=== PATIENT | male | born 1940 | race Caucasian/White ===

== ENCOUNTER 2017-10-26 11:45 | Outpatient (RCR) | payer MEDICARE, SELFPAY ==
--- NOTE | 2017-10-26 14:30 | HP.OTEVAL_ITS ---
Patient's Visit Information ANGEL MOSLEY is a 77 year old M, referred to Occupational Therapy by Harinder Worley [email or web address], with a diagnosis of CTS Release. Date of Evaluation: 10/26/17 Occupational Therapist: Haily Dawson - Subjective Subjective: Angel arrived and noted surgery for CTS 3 weeks ago, around 2017. He noted he fell off ladder about couple feet and fell off. He tried to catch himself with B hands and noted he was worried about CTS. - Pain Right Wrist 0 Pain Intensity Range: 2, 3 - ROM Wrist: flexion R 0-36, L 0-70; ext R 0-45, L 0-45 CMC: WFL MP: R 2nd 12-62, 3 19-68, 4 17-72, 5 10-90; L 2nd -10-80 WFL PIP: R 2nd 0-82, 3 0-87, 4 0-92, 5 6-72; L 2nd 0-95 ROM Comments: Angel has decreased ability to form composite fist with R hand at this time. - Strength [place] Carver: R 20, L 70 Lateral Pinch: R 11, L 15 Tripod Pinch: R 9, L 12 Tip-to-Tip Pinch: R 4, L 12 - Sensation Thumb: R 3.22, L 3.61 Index: R 3.61, L 3.22 Middle: R 3.22, L 3.84 Ring: R 2.83, L 3.61 Little: R 2.83, L 2.83 - Nine Hole Peg Comments: will complete in upcoming sessions. 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 Goal:: Angel to increase R hand ROM to that of L hand for increased Waldemar nd ability to complete manipulation tasks needfor IADls 2/3 trials 75% of the time by d/c. Goal:: Angel to consisently have 0-1/10 pain when completing all ADL/IADls including work 4/5 trials 80% of the time by d/c. Goal:: Angel to increase touch sesnation to normal as indicated on monofilament test to promote increased touch sesnation by time of d/c. Goal:: Angel to be (I) to return to all ADL/IADls including work tasks 4/5 trials 80% of the time by d/c. Goal:: Angel to be mod I to complete HEP with R UE to promote increased fx 4/5 trials 80% of the time by d/c. - Rehabilitation General Assessment: Angel arrived for OT eval on this date. He had R CTS release and trigger finger release on R 5th digit approximately 3 weeks ago. He noted he recently had a little fall and bumped R hand. He exhibited decreased ROM including ability to form full composite fist, strength, and fx activity paticpation. OT to work on increasing particpation in ADl/IADls to promote return to PLOF. Rehabilitation Potential: Excellent - Anticipated Interventions Anticipated Interventions: A/AAROM/PROM, Strengthening, Edema Control, Scar Care , Massage, Desensitization, Wound Care, Modalities, Orthoses, Joint Protection/ Energy Conservation, Dynamic Sitting Balance, Fine Motor Coord/Jose, Visual/ Perceptual Skills, ADL Training, Caregiver Training, Home Program - Visit Plan Frequency: 2-3x /Week Duration: 4-6 Weeks General Plan: Angel to recieve OT for 2-3x, 4-6 weeks to address ROM, strength , FMC, B hand dexterity, and return to all ADl/AIdls including work related tasks. Due to high copay Pt. will be treated 2-3x for first 2 weeks and then as long as progressing nicely he will be moved to 1x week to save on copays per visit. TEXT: Thank you for the opportunity to evaluate your patient. For Medicare and Medicare HMO plans, please review the plan of care and approve it. It will need to be FAXED BACK to us at [phone] for Medicare purposes. Please let me know if there are questions or concerns regarding this plan of care. Physician Signature: Date:
--- NOTE | 2018-01-14 09:47 | HP.OTDCNRP_ITS ---
HP - Discharge Summary - Patient Information VLAD MOSLEY was seen in my office for initial evaluation on 10/26/17. The following Plan of Care was established for this patient: Initial Frequency: 2-3x /Week Initial Duration: 4-6 Weeks - Anticipated Interventions Anticipated Interventions: A/AAROM/PROM, Strengthening, Edema Control, Scar Care , Massage, Desensitization, Wound Care, Modalities, Orthoses, Joint Protection/ Energy Conservation, Dynamic Sitting Balance, Fine Motor Coord/Jose, Visual/ Perceptual Skills, ADL Training, Caregiver Training, Home Program This patient was last seen in our office . Pertinent comments regarding their Occupational therapy will appear below: At this point I will be discontinuing this patient from occupational therapy. He was seen for evaluation only and never completed further follow up. I would be happy to see this patient again in the future if found appropriate by the physician. Thank you! Haily Dawson
== END 2017-10-26 19:00 | disposition home or self-care (01) ==
LOC: OT 11:45
PROVIDERS: Family Provider Family Medicine; PCP Family Medicine; Visit Provider Orthopaedic Surgery
DX: G56.01 Carpal tunnel syndrome, right upper limb (principal); M65.351 Trigger finger, right little finger
CPT/HCPCS: 97166